=== PATIENT | female | born 1955 | race Caucasian/White ===

== ENCOUNTER 2018-08-24 11:37 | Emergency (ER) | payer BC ==
[~2018-08-24] VITALS: Ht 152.4 cm; Wt 59.4 kg
[~2018-08-24 11:37] MED LIST: ALLEGRA ALLERG180 MG PO; AMITRIPTYLINE H25 M4 PO; ASPIRIN EC81 M1 PO; DIOVAN HCT 3201 EAC1 PO; FISH OIL 1,0001 EAC7 PO; GLUCOPHAGE500 MG PO; LIPITOR20 MG PO; NASONEX17 GM SPRAY; NEXIUM40 MG PO; NIACIN 100MG T100 M1 PO; NORCO 5-325 TA1 EACH PO; NORVASC 5 MG TAB5 MG PO; SYNTHROID100 MCG PO; ZEBETA PO
[2018-08-24 12:12] LABS: BASOPHILS 0.3 % (0.0-2.0)
[2018-08-24 12:16] LABS: EOSINOPHILS 0.8 % (0.0-3.0); HEMATOCRIT 38.9 % (37.0-47.0); HEMOGLOBIN 13.5 gm/dL (12.0-15.0); MCH 30.4 pg (26.0-34.0); MCHC 34.7 g/dL (28.0-37.0); MCV 87.5 fL (80.0-100.0); MONOCYTES 5.9 % (1.0-8.0); PLATELET COUNT 290 thou/uL (150-400); RBC 4.45 mil/uL (4.20-5.00); RDW 12.9 % (10.5-14.5); WBC 13.6 thou/uL (4.0-11.0)
[2018-08-24 12:19] LABS: ANION GAP 9 mmol/L (7-16); BUN 30 mg/dL (7-18); CALCIUM 9.9 mg/dL (8.5-10.1); CHLORIDE 96 mmol/L (98-107); CO2 27 mmol/L (21-32); GLUCOSE 108 mg/dL (74-106); POTASSIUM 4.1 mmol/L (3.5-5.1); SODIUM 132 mmol/L (136-145)
[2018-08-24 12:28] LABS: TROPONIN-I <0.06 ng/mL (<0.06)
[2018-08-24] MEDS ORDERED: BISOPROLOL FUMAR5 MG PO (13:14)
[2018-08-24] MEDS ORDERED: TOPAMAX50 MG PO (13:15)
[2018-08-24] MEDS ORDERED: ASPIR 8181 M1 PO (13:15)
[2018-08-24 13:46] VITALS: BP 105/47
--- NOTE | 2018-08-25 08:17 | EKG ---
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[facility] : 1955 Requested By: Long Deleon Order Number: [id number] MD: Kemar Yarbrough Measurements Intervals [place] Rate: 61 P: 21 TN: 230 QRS: -43 QRSD: 87 T: 44 QT: 432 QTc: 435 Interpretive Statements Sinus rhythm Prolonged TN interval Left anterior fascicular block Abnormal R-wave progression, late transition Compared to ECG 09/22/2012 13:55:29 No significant change was found Electronically Signed On 08-25-2018 8:17:13 CDT by Kemar Yarbrough [email or web address] ��������������������������������������������� <ELECTRONICALLY SIGNED> ���������������������������������������� By: Kemar Yarbrough MD, [facility] ��������������������������������������������� 08/25/18 0817 1149 [id number] Kemar Yarbrough MD, [facility] /EPI
== END 2018-08-24 13:24 | disposition home or self-care (01) ==
LOC: ER 11:37
PROVIDERS: Emergency Medicine
DX: R07.89 Other chest pain (principal); I10 Essential (primary) hypertension; G43.909 Migraine, unspecified, not intractable, without status migrainosus; E11.9 Type 2 diabetes mellitus without complications; E78.00 Pure hypercholesterolemia, unspecified; Z88.1 Allergy status to other antibiotic agents; Z88.0 Allergy status to penicillin; Z82.49 Family history of ischemic heart disease and other diseases of the circulatory system; Z83.42 Family history of familial hypercholesterolemia

== ENCOUNTER 2019-03-19 16:22 | Emergency (ER) | payer OTHER ==
[~2019-03-19] VITALS: Ht 152.4 cm; Wt 59.0 kg
[~2019-03-19 16:22] MED LIST changes: +ASPIR 8181 M1 PO; +BISOPROLOL FUMAR5 MG PO; +TOPAMAX50 MG PO
[2019-03-19 20:28] LABS: ABSOLUTE NEUTROPHILS 5.4 thou/uL (1.4-8.2); BASOPHILS 0.6 % (0.0-2.0); EOSINOPHILS 2.2 % (0.0-3.0); HEMATOCRIT 37.6 % (37.0-47.0); HEMOGLOBIN 12.9 gm/dL (12.0-15.0); LYMPHOCYTES 14.9 % (24.0-44.0); MCH 30.5 pg (26.0-34.0); MCHC 34.3 g/dL (28.0-37.0); MCV 88.9 fL (80.0-100.0); MONOCYTES 10.8 % (1.0-8.0); PLATELET COUNT 376 thou/uL (150-400); POLYS 71.5 % (36.0-66.0); RBC 4.23 mil/uL (4.20-5.00); RDW 12.4 % (10.5-14.5); WBC 7.6 thou/uL (4.0-11.0)
[2019-03-19 20:34] LABS: ANION GAP 11 mmol/L (7-16); BUN 18 mg/dL (7-18); CALCIUM 9.9 mg/dL (8.5-10.1); CHLORIDE 92 mmol/L (98-107); CO2 25 mmol/L (21-32); CREATININE 0.8 mg/dL (0.6-1.0); GLUCOSE 102 mg/dL (74-106); POTASSIUM 3.2 mmol/L (3.5-5.1); SODIUM 128 mmol/L (136-145)
[2019-03-19 20:43] LABS: ALBUMIN 3.7 g/dL (3.4-5.0); SGOT 14 U/L (15-37); SGPT 28 U/L (30-65); TOTAL BILIRUBIN 0.3 mg/dL (<0.1-1.0); TOTAL PROTEIN 7.7 g/dL (6.4-8.2); TROPONIN-I <0.06 ng/mL (<0.06)
[2019-03-19] MEDS ORDERED: ATIVAN0.5 M1 PO (21:05)
[2019-03-19 21:29] VITALS: BP 120/63
--- NOTE | 2019-03-20 07:56 | EKG ---
[address] [place] [address] ELECTROCARDIOGRAM REPORT Name: ELIJOHANNE Room #: DEP [facility]#: [id number] Admission: 03/19/19 Attend Phys: Discharge: 03/19/19 Date of : 51 Report #: [id number] THIS REPORT FOR: //name// [facility] ED Test Date: 2019-03-19 Test Time: 19:57:56 Pat Name: JOHANNE BENITEZ Department: Room: Gender: F Sales Counselor: М[employer]РИЯ : 1955 Requested By: Vicky Restrepo Order Number: [id number] MD: Imer Kyle Measurements Intervals [place] Rate: 50 P: 70 GA: 223 QRS: -36 QRSD: 82 T: 28 QT: 460 QTc: 420 Interpretive Statements Sinus rhythm Prolonged GA interval Left axis deviation Compared to ECG 08/24/2018 11:49:31 Left-axis deviation now present Left anterior fascicular block no longer present Electronically Signed On 03-20-2019 7:55:44 ELECTROCARDIOGRAM TECHNICIAN by Imer Kyle [email or web address] <ELECTRONICALLY SIGNED> By: Imer Kyle MD 03/20/19 0755 56 56 Imer Kyle MD /EPI
== END 2019-03-19 21:30 | disposition home or self-care (01) ==
LOC: ER 16:22
PROVIDERS: Physician Assistant
DX: G47.00 Insomnia, unspecified (principal); F41.9 Anxiety disorder, unspecified; R06.02 Shortness of breath; R21 Rash and other nonspecific skin eruption; I10 Essential (primary) hypertension; E11.9 Type 2 diabetes mellitus without complications; E78.00 Pure hypercholesterolemia, unspecified; G43.909 Migraine, unspecified, not intractable, without status migrainosus; Z88.0 Allergy status to penicillin; Z88.1 Allergy status to other antibiotic agents